=== PATIENT | female | born 1950 | race Two or more races ===

== ENCOUNTER 2025-08-21 08:58 | Inpatient (IN) | payer OTHER ==
[~2025-08-21] VITALS: Ht 162.6 cm; Wt 117.5 kg
[~2025-08-21 08:58] MED LIST: CELE1CAP29 PO; FURO20TA4 PO; GLIP5TAB21 PO; METF-372 PO; METO2.5T PO; POTA-228 PO
--- NOTE | 2025-08-21 09:30 | ED.PDOC ---
History of Present Illness HPI Comments 74-year-old female brought in by ambulance with prior medical history of hypertension, diabetes, AFib, bilateral knee arthritis and a chief complaint of a fall. EMS for on picking the patient up from an independent out post home foremost. Patient reports on ambulating when she felt dizzy and had a near syn copal episode falling on her butt. Patient is currently complaining of right knee pain and lower back pain. The blood pressure on scene was 136/71. Denies any other symptoms at this time. Denies chills, fever, N/V/D, SOB, CP. No other associated symptoms, modifiers, recent injuries or sick contacts present at this time. Chief Complaint: Fall Injury Time Seen by MD: 09:30 Reviewed Notes: Nurses Notes, Medications, Allergies Allergies: Coded Allergies: Sulfa Antibiotics (Verified Allergy, Unknown, 08/21/25) Information Source: Patient, Emergency Med Personnel Mode of Arrival: EMS Severity: Moderate Timing: Minutes Duration: Since onset, Minutes Prehospital treatment: None Past Medical History PAST MEDICAL HISTORY: AFIB, Arthritis (Bilateral knees), DM, HTN, Denies Surgical History: Denies all surgeries MANAGEMENT RECRUITER History: No Pertinent MANAGEMENT RECRUITER History Family History Family History: Reviewed,noncontributory to illness, Unknown Social History Smoker: Non-Smoker Alcohol: Denies ETOH Use Drugs: Denies Drug Use Lives In: Assisted Care Constitutional: denies: chills, diaphoresis, fatigue, fever, malaise, sweats, weakness, others EENTM: denies: blurred vision, double vision, ear bleeding, ear discharge, ear drainage, ear pain, ear ringing, eye pain, eye redness, hearing loss, mouth pain, mouth swelling, nasal discharge, nose bleeding, nose congestion, nose pain, photophobia, tearing, throat pain, throat swelling, voice changes, others Respiratory: denies: cough, hemoptysis, orthopnea, SOB at rest, shortness of breath, SOB with excertion, stridor, wheezing, others Cardiovascular: denies: chest pain, dizzy spells, diaphoresis, Dyspnea on exertion, edema, irregular heart beat, left arm pain, lightheadedness, palpitations, PND, syncope, others Gastrointestinal: denies: abdomen distended, abdominal pain, blood streaked bowels, constipated, diarrhea, dysphagia, difficulty swallowing, hematemesis, melena, nausea, poor appetite, poor fluid intake, rectal bleeding, rectal pain, vomiting, others Genitourinary: denies: abnormal vagina bleeding, burning, dyspareunia, dysuria, flank pain, frequency, hematuria, incontinence, pain, , vagina discharge, urgency, others Neurological: reports: dizziness; denies: fainting, headache, left sided numbness, left sided weakness, numbness, paresthesia, pre-existing deficit, right sided numbness, right sided weakness, seizure, speech problems, tingling, tremors, weakness, others Musculoskeletal: reports: back pain; denies: gout, joint pain, joint swelling, muscle pain, muscle stiffness, neck pain, others Integumetry: denies: bruises, change in color, change in hair/nails, dryness, laceration, lesions, lumps, rash, wounds, others Allergic/Immunocompromised: denies: Difficulty Healing, Frequent Infections, Hives, Itching, others Hematologic/Lymphatic: denies: anemia, blood clots, easy bleeding, easy bruising, swollen glands, others Endocrine: denies: excessive hunger, excessive sweating, excessive thirst, excessive urination, flushing, intolerance to cold, intolerance to heat, unexplained weight gain, unexplained weight loss, others Psychiatric: denies: anxiety, bipolar disorder, depression, hopeless, panic disorder, schizophrenia, sleepless, suicidal, others All Other Systems: Reviewed and Negative Physical Exam General Appearance: Moderate Distress, Obese HEENT: Normal ENT Inspection, Pharynx Normal, TMs Normal Neck: Full Range of Motion, Non-Tender, Normal, Normal Inspection Respiratory: Chest Non-Tender, Lungs Clear, No Accessory Muscle Use, No Respiratory Distress, Normal Breath Sounds Cardiovascular: Irregular, No Edema, No JVD, No Murmur, No Gallop, Normal Peripheral Pulses Breast Exam: Deferred Gastrointestinal: No Organomegaly, Non Tender, No Pulsatile Mass, Normal Bowel Sounds, Soft Genitalia: Deferred Pelvic: Deferred Rectal: Deferred Extremities: No calf tenderness, Normal capillary refill, No pedal edema Musculoskeletal : Apperance: Normal Neurologic: Alert, manager traffic II-XII nml as Tested, No Motor Deficits, Normal Affect, Normal Mood, No Sensory Deficits Cerebellar Function: NOT DONE Reflexes: NOT DONE Skin: Dry, Normal Color, Warm Peripheral Pulses: 3+ Radial (R), 3+ Radial (L) Lymphatic: No Adenopathy Was a procedure done? Was a procedure done?: No Differential Dx Considerations may include: Atrial fibrillation Electrolyte imbalance X-Ray, Labs, Meds, VS Vital Signs Date Time Temp Pulse Resp B/P (MAP) Pulse Ox O2 Delivery O2 Flow Rate FiO2 08/21/25 09:22 97.5 118 20 138/62 95 97.5 08/21/25 09:07 118 Lab Test 08/21/25 10:40 08/21/25 09:39 Range/Units Troponin I High Sensitivity 4 3 L </=34 ng/L White Blood Count 10.9 H 4.4-10.8 10^3/uL Red Blood Count 4.06 4.0-5.20 10^6/uL Hemoglobin 12.3 12.2-16.2 g/dL Hematocrit 36.7 36.0-46.0 % Mean Corpuscular Volume 90.5 80.0-100.0 fL Mean Corpuscular Hemoglobin 30.4 28.0-32.0 pg Mean Corpuscular Hemoglobin Concent 33.6 32.0-36.0 g/dL Red Cell Distribution Width 13.9 11.8-14.3 % Platelet Count 307 140-450 10^3/uL Mean Platelet Volume 7.0 6.9-10.8 fL Neutrophils (%) (Auto) 83.4 H 37.0-80.0 % Lymphocytes (%) (Auto) 9.9 L 10.0-50.0 % Monocytes (%) (Auto) 6.1 0.0-12.0 % Eosinophils (%) (Auto) 0.3 0.0-7.0 % Basophils (%) (Auto) 0.3 0.0-2.0 % Neutrophils # (Auto) 9.1 H 1.6-8.6 10 ^3/uL Lymphocytes # (Auto) 1.1 0.4-5.4 10 ^3/uL Monocytes # (Auto) 0.7 0-1.3 10 ^3/uL Eosinophils # (Auto) 0 0-0.8 10 ^3/uL Basophils # (Auto) 0 0-0.2 10 ^3/uL Nucleated Red Blood Cells 0.0 % Sodium Level 138 136-145 mmol/L Potassium Level 4.0 3.5-5.1 mmol/L Chloride Level 100 98-107 mmol/L Carbon Dioxide Level 28 20-31 mmol/L Anion Gap 10 5-15 Blood Urea Nitrogen 14 9-23 mg/dL Creatinine 1.14 H 0.550-1.02 mg/dL Glomerular Filtration Rate Calc 50 >90 mL/min BUN/Creatinine Ratio 12.3 10.0-20.0 Serum Glucose 155 H 74-106 mg/dL Calcium Level 9.0 8.7-10.4 mg/dL Current Medications Medications (Trade) Dose Ordered Sig/Elinor Route Start Time Stop Time Status Last Admin Amiodarone HCl 100 ml @ 600 mls/hr ONCE ONCE IV 08/21/25 09:30 08/21/25 09:39 DC 08/21/25 10:00 Amiodarone HCl 250 ml @ 33.33 mls/ hr Q7H31M ONCE IV 08/21/25 09:45 08/21/25 17:15 08/21/25 10:20 Piperacillin Sod/ Tazobactam Sod 100 ml @ 100 mls/hr ONCE ONCE IV 08/21/25 11:30 08/21/25 12:29 08/21/25 11:56 Patient alert. Complaining of generalized weakness. She did slip and fall from sitting position. Vitals stable. Blood sugar elevated. EKG does show atrial fibrillation. Establish intravenous access. Was given amiodarone. Explained to the patient. Continue monitoring. Time of 1ST Reevaluation: 10:00 Reevaluation 1ST: Unchanged Patient Education/Counseling: Diagnosis, Treatment, Prognosis Family Education/Counseling: No Family Present SEPSIS Sepsis Screen Date sepsis recognized/suspect: Aug 21, 2025 Time Sepsis recognized/suspect: 08 Recent Procedure: No On Antibiotic Therapy: No Respiratory Rate >20: No Heart Rate >90: Yes Temp<36 C (96.8 F) or >38.3 C: No SBP <90 or MAP <65 mmHG: No New Acute Mental Status Change: No Is the patient on CPAP, BIPAP,: No Physician Orders Pelvis Ap (08/21/25 09:21) Chest Portable (08/21/25 09:21) Urinalysis (08/21/25 09:21) Troponin-I Hs (08/21/25 12:21) Amiodarone 450mg/250ml Ae (Cordarone) (08/21/25 09:45) Piperacillin-Tazob 3.375gm (Zosyn 3.375g (08/21/25 11:30) Azithromycin 500mg/ 250ml (Zithromax 50 (08/21/25 11:30) Vital Signs Date Time Temp Pulse Resp B/P (MAP) Pulse Ox O2 Delivery O2 Flow Rate FiO2 08/21/25 09:22 97.5 118 20 138/62 95 97.5 08/21/25 09:07 118 Laboratory Tests Test 08/21/25 09:39 White Blood Count 10.9 10^3/uL (4.4-10.8) H Medications Medications Dose Ordered Sig/Elinor Route Start Time Stop Time Status Last Admin Dose Admin Amiodarone HCl 100 ml @ 600 mls/hr ONCE ONCE IV 08/21/25 09:30 08/21/25 09:39 DC 08/21/25 10:00 Amiodarone HCl 250 ml @ 33.33 mls/ hr Q7H31M ONCE IV 08/21/25 09:45 08/21/25 17:15 08/21/25 10:20 Piperacillin Sod/ Tazobactam Sod 100 ml @ 100 mls/hr ONCE ONCE IV 08/21/25 11:30 08/21/25 12:29 08/21/25 11:56 Departure 1 Departure Time of Disposition: 11:18 Impression: Primary Impression: Atrial fibrillation Qualified Codes: I48.0 - Paroxysmal atrial fibrillation Additional Impressions: Hyperglycemia Leukocytosis Qualified Codes: D72.829 - Elevated white blood cell count, unspecified Disposition: ADMITTED INPATIENT Admit to: Med Surg Condition: Guarded Critical Care Note Critical Care Time?: Yes (90 min-critical care time only) Stability Stability form required: No Heart Score Heart Score: Heart Score Response (Comments) Value History Slightly Suspicious 0 EKG Normal 0 Age >65 2 Risk Factors >3 or Hx ASHD 2 Troponin Normal limit 0 Total 4 I personally scribed for ALENA CHUNG MD ([email or web address]) on 08/21/25 at 09:30. Electronically submitted by Desmond Mars ([email or web address]). ALENA CHUNG MD Aug 21, 2025 09:30
--- NOTE | 2025-08-21 09:49 | ECG ---
[facility] Test Date: 2025-08-21 Test Time: 09:07:38 Pat Name: JUMANA RICHMOND Department: [facility] ED Room: 0204T Gender: F Computer Customer Support Specialist: ELIZA : 1950 Requested By: ALENA CHUNG Order Number: [id number] Reading MD: Dawson Sellers Measurements Intervals [place] Rate: 118 P: 0 IA: 0 QRS: 121 QRSD: 93 T: 5 QT: 305 QTc: 428 Interpretive Statements Sinus tachycardia Anterior infarct, old Electronically Signed On 08-27-2025 13:21:10 PST by Dawson Sellers Please click the below link to view image of tracing.
[2025-08-21 09:58] LABS: Hematocrit 36.7 % (36.0-46.0); Hemoglobin 12.3 g/dL (12.2-16.2); Mean Corpuscular Hemoglobin 30.4 pg (28.0-32.0); Mean Corpuscular Volume 90.5 fL (80.0-100.0); Nucleated Red Blood Cells % 0.0 %
[2025-08-21] MEDS: AMIODARONE BOLUS KIT 100 ML IV ONE (10:00)
--- NOTE | 2025-08-21 10:01 | DVH ---
CLINICAL INDICATION: fall TECHNIQUE: XY PELVIS AP Comparison: None FINDINGS/IMPRESSION: : There is no evidence of acute fracture or dislocation. Soft tissues are unremarkable. 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
--- NOTE | 2025-08-21 10:03 | DVH ---
CHEST RADIOGRAPH Indication: sob Technique: Single frontal view of the chest was obtained COMPARISON: None FINDINGS: Lines and Tubes: None Lungs: Congestion Pleura: No effusion. No pneumothorax. Cardiomediastinal contours: Unremarkable Bones: Chronic appearing displaced fracture of the left proximal humerus. IMPRESSION: Increased interstital prominence. This may represent pulmonary vascular congestion and/or viral pneum onia. Clinical correlation advised.
[2025-08-21 10:10] LABS: Chloride 100 mmol/L (98-107); Potassium 4.0 mmol/L (3.5-5.1); Sodium 138 mmol/L (136-145)
[2025-08-21 10:11] LABS: Anion Gap 10 (5-15); Calcium 9.0 mg/dL (8.7-10.4); Carbon Dioxide 28 mmol/L (20-31)
[2025-08-21 10:16] LABS: BUN/Creatinine Ratio 12.3 (10.0-20.0); Blood Urea Nitrogen 14 mg/dL (9-23)
[2025-08-21 10:17] LABS: Glucose 155 mg/dL (74-106)
[2025-08-21] MEDS: SODIUM CHLORIDE 0.9% 1,000 ML IV ONE (11:17)
--- NOTE | 2025-08-21 11:17 | ECG ---
[facility] Test Date: 2025-08-21 Test Time: 11:16:05 Pat Name: JUMANA RICHMOND Department: [facility] ED Patient ID: [id number] Room: 0204T Gender: F Material Analyst: baltazar : 1950 Requested By: ALENA CHUNG Order Number: [id number] Reading MD: Dawson Sellers Measurements Intervals [place] Rate: 117 P: 48 NE: 197 QRS: 107 QRSD: 81 T: 33 QT: 299 QTc: 417 Interpretive Statements Sinus tachycardia Multiform ventricular premature complexes Anterior infarct, old Electronically Signed On 08-27-2025 13:23:44 PST by Dawson Sellers Please click the below link to view image of tracing.
[2025-08-21 11:30] VITALS: PULSE 120; RESP 14; O2SAT 94
[2025-08-21] MEDS: PIPERACILLIN-TAZOB 3.375GM 100 ML IV ONE (11:56)
[2025-08-21] MEDS: FUROSEMIDE 40 MG/4 ML VIAL IV ONE (12:20)
[2025-08-21] MEDS: AZITHROMYCIN 500MG/ 250ML 250 ML IV ONE (14:20)
[2025-08-21] MEDS ORDERED: ATOR40TA52 PO (14:52)
[2025-08-21] MEDS ORDERED: IRBE150T49 PO (14:52)
[2025-08-21] MEDS ORDERED: APIX5TAB PO (14:52)
[2025-08-21] MEDS ORDERED: NIFE1TAB30 PO (14:52)
[2025-08-21] MEDS ORDERED: DEXTROSE (50%) 50ML SYRG IV PRN (15:00)
[2025-08-21] MEDS ORDERED: ONDANSETRON HCL 4 MG/2 ML VIAL IV PRN (15:00)
[2025-08-21] MEDS ORDERED: NITROGLYCERIN 0.4 MG SL TAB SL PRN ×2 (15:00→15:15)
[2025-08-21] MEDS ORDERED: MORPHINE SULFATE INJ 2 MG/ml SYRG IV PRN ×2 (15:00→15:15)
--- NOTE | 2025-08-21 15:04 | DVHHP2 ---
History of Present Illness Reason for Visit: Status post fall History of Present Illness Dilcia Aceves is a 74 year old female with past medical history of AFib, arthritis bilateral knees, DVT, diabetes, hypertension, CHF, and hyperlipidemia who presents to the ED with a status post fall after ambulating, reports that she was dizzy and had a near syncopal episode. Review of Systems Other Status post fall Allergies: Coded Allergies: Sulfa Antibiotics (Verified Allergy, Unknown, 08/21/25) Exam Vital Signs Vital Signs Date Time Temp Pulse Resp B/P (MAP) Pulse Ox O2 Delivery O2 Flow Rate FiO2 08/21/25 14:00 110 12 158/85 (109) 96 08/21/25 11:30 Room Air* 0 21 08/21/25 09:22 97.5 97.5 Labs/Xrays Labs Test 08/21/25 10:40 08/21/25 09:39 Range/Units Troponin I High Sensitivity 4 </=34 ng/L White Blood Count 10.9 H 4.4-10.8 10^3/uL Red Blood Count 4.06 4.0-5.20 10^6/uL Hemoglobin 12.3 12.2-16.2 g/dL Hematocrit 36.7 36.0-46.0 % Mean Corpuscular Volume 90.5 80.0-100.0 fL Mean Corpuscular Hemoglobin 30.4 28.0-32.0 pg Mean Corpuscular Hemoglobin Concent 33.6 32.0-36.0 g/dL Red Cell Distribution Width 13.9 11.8-14.3 % Platelet Count 307 140-450 10^3/uL Mean Platelet Volume 7.0 6.9-10.8 fL Neutrophils (%) (Auto) 83.4 H 37.0-80.0 % Lymphocytes (%) (Auto) 9.9 L 10.0-50.0 % Monocytes (%) (Auto) 6.1 0.0-12.0 % Eosinophils (%) (Auto) 0.3 0.0-7.0 % Basophils (%) (Auto) 0.3 0.0-2.0 % Neutrophils # (Auto) 9.1 H 1.6-8.6 10 ^3/uL Lymphocytes # (Auto) 1.1 0.4-5.4 10 ^3/uL Monocytes # (Auto) 0.7 0-1.3 10 ^3/uL Eosinophils # (Auto) 0 0-0.8 10 ^3/uL Basophils # (Auto) 0 0-0.2 10 ^3/uL Nucleated Red Blood Cells 0.0 % Sodium Level 138 136-145 mmol/L Potassium Level 4.0 3.5-5.1 mmol/L Chloride Level 100 98-107 mmol/L Carbon Dioxide Level 28 20-31 mmol/L Anion Gap 10 5-15 Blood Urea Nitrogen 14 9-23 mg/dL Creatinine 1.14 H 0.550-1.02 mg/dL Glomerular Filtration Rate Calc 50 >90 mL/min BUN/Creatinine Ratio 12.3 10.0-20.0 Serum Glucose 155 H 74-106 mg/dL Calcium Level 9.0 8.7-10.4 mg/dL CLINICAL INDICATION: fall TECHNIQUE: XY PELVIS AP Comparison: None FINDINGS/IMPRESSION: : There is no evidence of acute fracture or dislocation. Soft tissues are unremarkable. 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 CHEST RADIOGRAPH Indication: sob Technique: Single frontal view of the chest was obtained COMPARISON: None FINDINGS: Lines and Tubes: None Lungs: Congestion Pleura: No effusion. No pneumothorax. Cardiomediastinal contours: Unremarkable Bones: Chronic appearing displaced fracture of the left proximal humerus. IMPRESSION: Increased interstital prominence. This may represent pulmonary vascular congestion and/or viral pneumonia. Clinical correlation advised. SEPSIS Sepsis Screen Date sepsis recognized/suspect: Aug 21, 2025 Time Sepsis recognized/suspect: 1130 Recent Procedure: No On Antibiotic Therapy: No Respiratory Rate >20: No Heart Rate >90: No Temp<36 C (96.8 F) or >38.3 C: No SBP <90 or MAP <65 mmHG: No New Acute Mental Status Change: No Is the patient on CPAP, BIPAP,: No Physician Orders Pelvis Ap (08/21/25 09:21) Chest Portable (08/21/25 09:21) Urinalysis (08/21/25 09:21) Amiodarone 450mg/250ml Ae (Cordarone) (08/21/25 09:45) Insert Loaiza Catheter QSHIFT (08/21/25 12:23) Vital Signs Date Time Temp Pulse Resp B/P (MAP) Pulse Ox O2 Delivery O2 Flow Rate FiO2 08/21/25 14:00 110 12 158/85 (109) 96 08/21/25 12:20 144/90 08/21/25 11:30 120 14 152/83 (106) 94 08/21/25 11:30 120 14 94 Room Air* 0 21 08/21/25 09:22 97.5 118 20 138/62 95 97.5 08/21/25 09:07 118 Laboratory Tests Test 08/21/25 09:39 White Blood Count 10.9 10^3/uL (4.4-10.8) H Medications Medications Dose Ordered Sig/Elinor Route Start Time Stop Time Status Last Admin Dose Admin Amiodarone HCl 100 ml @ 600 mls/hr ONCE ONCE IV 08/21/25 09:30 08/21/25 09:39 DC 08/21/25 10:00 600 MLS/HR Amiodarone HCl 250 ml @ 33.33 mls/ hr Q7H31M ONCE IV 08/21/25 09:45 08/21/25 17:15 08/21/25 10:20 33.33 MLS/HR Azithromycin 250 ml @ 125 mls/hr ONCE ONCE IV 08/21/25 11:30 08/21/25 13:29 DC 08/21/25 14:20 125 MLS/HR Furosemide 40 mg ONCE ONCE IV 08/21/25 11:30 08/21/25 11:31 DC 08/21/25 12:20 40 MG Piperacillin Sod/ Tazobactam Sod 100 ml @ 100 mls/hr ONCE ONCE IV 08/21/25 11:30 08/21/25 12:29 DC 08/21/25 11:56 100 MLS/HR Assessment/Plan Assessment/Plan Assessment/plan Admit to [facility] AFib RVR -amiodarone drip -cardiology consult Autonomic imbalance Status post fall 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 History of arthritis bilateral knees -CT head -carotid ultrasound -orthostatics -echo -pelvic x-ray -chest x-ray History of DVT -patient on Eliquis, resumed History of diabetes -hemoglobin A1c -ISS and Accu-Cheks History of hypertension History of CHF History of hyperlipidemia -strict I&Os -daily weight -diurese -antihypertensives -resume home medications Diet DVT and PUD prophylaxis Home medications reconciled Discussed plan of care with patient and nurse [id number] Preventive counseling healthy eating habits, physical activity, and regular checkups Plan discussed with: Patient Date of Service: Aug 21, 2025 Billing Provider: TEJ COFFEY Common Visit Codes: [id number] INP/OBS CARE (HIGH) Secondary Visit Codes: [id number] COUNSELING IND TEJ COFFEY Aug 21, 2025 15:04
--- NOTE | 2025-08-21 15:07 | DVHHP2 ---
History of Present Illness Home Meds Reported Medications Celecoxib (Celecoxib) 200 Mg Cap, 1 CAP PO BID for 90 Days, #180 08/22/25 Metolazone (Metolazone) 2.5 Mg Tab, 1 TAB PO DAILY for 90 Days, #90 08/22/25 Furosemide (Furosemide) 20 Mg Tab, 1 TAB PO DAILY for 90 Days, #90 08/22/25 Glipizide (Glipizide) 5 Mg Tab, 1 TAB PO DAILY for 100 Days, #100 08/22/25 Potassium Chloride (Potassium Chloride ER) 10 Meq Tab, 1 TAB PO BID for 90 Days, #180 08/22/25 Metformin Hydrochloride (Metformin Hcl) 1,000 Mg Tab, 1 TAB PO BID for 90 Days, #180 08/22/25 Nifedipine (Nifedipine Er) 60 Mg Tab, 1 TAB PO BID 08/21/25 Atorvastatin Calcium (ATORVASTATIN CALCIUM) 40 Mg Tab, 1 TAB PO DAILY 08/21/25 Apixaban Base (ELIQUIS) 5 Mg Tab, 1 TAB PO BID 08/21/25 Irbesartan (IRBESARTAN) 150 Mg Tab, 1 TAB PO DAILY 08/21/25 H&P Exam Vital Signs Vital Signs Date Time Temp Pulse Resp B/P (MAP) Pulse Ox O2 Delivery O2 Flow Rate FiO2 08/21/25 14:00 110 12 158/85 (109) 96 08/21/25 11:30 Room Air* 0 21 08/21/25 09:22 97.5 97.5 SEPSIS Sepsis Screen Date sepsis recognized/suspect: Aug 21, 2025 Time Sepsis recognized/suspect: 1130 Recent Procedure: No On Antibiotic Therapy: No Respiratory Rate >20: No Heart Rate >90: No Temp<36 C (96.8 F) or >38.3 C: No SBP <90 or MAP <65 mmHG: No New Acute Mental Status Change: No Is the patient on CPAP, BIPAP,: No Physician Orders Pelvis Ap (08/21/25 09:21) Chest Portable (08/21/25 09:21) Urinalysis (08/21/25 09:21) Amiodarone 450mg/250ml Ae (Cordarone) (08/21/25 09:45) Insert Loaiza Catheter QSHIFT (08/21/25 12:23) Apixaban (Eliquis) (08/21/25 22:00) (Nf) Atorvastatin Calcium (08/22/25 10:00) (Nf) Irbesartan (08/22/25 10:00) (Nf) Nifedipine (Nifedipine Er) (08/21/25 22:00) Head Without Contrast (08/21/25 14:55) Carotid Duplx W Color Dop (08/21/25 14:55) Orthostatic Vital Signs (08/21/25 14:55) Allergies (08/21/25 14:55) Code Status (08/21/25 14:55) Ondansetron Hcl (Zofran) (08/21/25 15:00) Complete Blood Count (08/22/25 04:00) Comprehensive Metabolic Panel (08/22/25 04:00) Echo 2d Mode Cardiac Dop (08/21/25 14:55) Acetaminophen Tablet (Tylenol Tablet) (08/21/25 15:00) Sequential Compression Device (08/21/25 ) Nitroglycerin Sublingual (Ntrostat Subli (08/21/25 15:00) Morphine Sulfate Injection (08/21/25 15:00) Stat Ekg For Chest Pain (08/21/25 14:55) Notify Md Of Changes From Base (08/21/25 14:55) Fuel Attendant For 24 Hours (08/21/25 14:55) Emergency Dysrhythmia Protocol (08/21/25 14:55) Rhythm Strips Once Every Shift (08/21/25 14:55) Oxygen By Nasal Cannula (08/21/25 14:55) Urinalysis (08/21/25 14:58) Ceftriaxone 1gm/50ml (Rocephin) (08/22/25 09:00) Hemoglobin A1c (08/21/25 14:58) Glucose Blood (Accu-Chek Comfort Curve T (08/21/25 17:00) Insulin R (Human) (Insulin R) (08/21/25 17:00) Dextrose 50% Syringe (08/21/25 15:00) Cardiac Diet-2gna,Lofat,Lochol (08/21/25 Dinner) Furosemide Injection (Lasix Injection) (08/21/25 15:15) Strict I & O QSHIFT (08/21/25 15:04) Daily Weight (08/21/25 15:04) Vital Signs Date Time Temp Pulse Resp B/P (MAP) Pulse Ox O2 Delivery O2 Flow Rate FiO2 08/21/25 14:00 110 12 158/85 (109) 96 08/21/25 12:20 144/90 08/21/25 11:30 120 14 152/83 (106) 94 08/21/25 11:30 120 14 94 Room Air* 0 21 08/21/25 09:22 97.5 118 20 138/62 95 97.5 08/21/25 09:07 118 Laboratory Tests Test 08/21/25 09:39 White Blood Count 10.9 10^3/uL (4.4-10.8) H Medications Medications Dose Ordered Sig/Elinor Route Start Time Stop Time Status Last Admin Dose Admin Amiodarone HCl 100 ml @ 600 mls/hr ONCE ONCE IV 08/21/25 09:30 08/21/25 09:39 DC 08/21/25 10:00 600 MLS/HR Amiodarone HCl 250 ml @ 33.33 mls/ hr Q7H31M ONCE IV 08/21/25 09:45 08/21/25 17:15 08/21/25 10:20 33.33 MLS/HR Azithromycin 250 ml @ 125 mls/hr ONCE ONCE IV 08/21/25 11:30 08/21/25 13:29 DC 08/21/25 14:20 125 MLS/HR Furosemide 40 mg ONCE ONCE IV 08/21/25 11:30 08/21/25 11:31 DC 08/21/25 12:20 40 MG Piperacillin Sod/ Tazobactam Sod 100 ml @ 100 mls/hr ONCE ONCE IV 08/21/25 11:30 08/21/25 12:29 DC 08/21/25 11:56 100 MLS/HR Labs/Xrays Labs Test 08/21/25 10:40 08/21/25 09:39 Range/Units Troponin I High Sensitivity 4 </=34 ng/L White Blood Count 10.9 H 4.4-10.8 10^3/uL Red Blood Count 4.06 4.0-5.20 10^6/uL Hemoglobin 12.3 12.2-16.2 g/dL Hematocrit 36.7 36.0-46.0 % Mean Corpuscular Volume 90.5 80.0-100.0 fL Mean Corpuscular Hemoglobin 30.4 28.0-32.0 pg Mean Corpuscular Hemoglobin Concent 33.6 32.0-36.0 g/dL Red Cell Distribution Width 13.9 11.8-14.3 % Platelet Count 307 140-450 10^3/uL Mean Platelet Volume 7.0 6.9-10.8 fL Neutrophils (%) (Auto) 83.4 H 37.0-80.0 % Lymphocytes (%) (Auto) 9.9 L 10.0-50.0 % Monocytes (%) (Auto) 6.1 0.0-12.0 % Eosinophils (%) (Auto) 0.3 0.0-7.0 % Basophils (%) (Auto) 0.3 0.0-2.0 % Neutrophils # (Auto) 9.1 H 1.6-8.6 10 ^3/uL Lymphocytes # (Auto) 1.1 0.4-5.4 10 ^3/uL Monocytes # (Auto) 0.7 0-1.3 10 ^3/uL Eosinophils # (Auto) 0 0-0.8 10 ^3/uL Basophils # (Auto) 0 0-0.2 10 ^3/uL Nucleated Red Blood Cells 0.0 % Sodium Level 138 136-145 mmol/L Potassium Level 4.0 3.5-5.1 mmol/L Chloride Level 100 98-107 mmol/L Carbon Dioxide Level 28 20-31 mmol/L Anion Gap 10 5-15 Blood Urea Nitrogen 14 9-23 mg/dL Creatinine 1.14 H 0.550-1.02 mg/dL Glomerular Filtration Rate Calc 50 >90 mL/min BUN/Creatinine Ratio 12.3 10.0-20.0 Serum Glucose 155 H 74-106 mg/dL Calcium Level 9.0 8.7-10.4 mg/dL Assessment/Plan Primary Diagnosis Date of service: 74-year-old female brought in by ambulance with prior medical history of hypertension, diabetes, AFib, bilateral knee arthritis and a chief complaint of a fall. EMS for on picking the patient up from an independent out post home foremost. Patient reports on ambulating when she felt dizzy and had a near syncopal episode falling on her butt. Patient is currently complaining of right knee pain and lower back pain. The blood pressure on scene was 136/71. Denies any other symptoms at this time. Denies chills, fever, N/V/D, SOB, CP. No other associated symptoms, modifiers, recent injuries or sick contacts present at this time. AFib with RVR Autonomic imbalance vs CVA History of DVT DM type II CHF chronic CHF History of hyperlipidemia edema b/l in lower extremities leg swelling, ruling out DVT edema b/l syncope, ruling out CVA Plan discussed with: Patient, Daughter RABIA DENIS Aug 21, 2025 15:07
--- NOTE | 2025-08-21 15:41 | DVH ---
Procedure: CT HEAD WITHOUT CONTRAST Study Date and Requested Time: 08/21/2025 03:02 PM History: s/p fall Comparison: None Dose: CTDI: 65.65 mGy DLP: 1293.57 mGycm Technique: Multiplanar images obtained through the brain without intravenous contrast. Findings: Study is limited By Motion artifact in streak artifact by external ear hardware. Moderate Diffuse br ain atrophy. Mild chronic small-vessel ischemic changes. No hemorrhages, masses, mass effect, midline shift, herniation or cytotoxic edema following a large v ascular territory. No intra-axial or extra-axial fluid collections. No evidence of hydrocephalus. The basal cisterns are patent. The pituitary gland, sella and parasellar regions are unremarkable. The cerebellar tonsils are in nor mal position. The cerebellum is unremarkable. The orbits and globes are unremarkable. Polypoid mucoperiosteal thickening of the maxillary sinuses w ith polypoid mucoperiosteal thickening of the left inferior frontal sinus and minimal mucoperiosteal thickening of the ethmoid air cells. The remainder of the paranasal sinuses and mastoids are clear. T here are no worrisome calvarial lesions. Impression: Study is limited by motion and streak artifact with no obvious intracranial hemorrhage.
[2025-08-21 15:42] LABS: Urine Protein, UAD Negative (Negative)
--- NOTE | 2025-08-21 16:01 | DVH ---
Carotid Duplex Date: 08/21/2025 03:21 PM Clinical History: s/p fall Comparison: None Technique: Duplex Doppler evaluation of the extracranial carotid and vertebral arteries including col or Doppler and spectral/pulsed waveform analysis was performed. Findings: RIGHT SIDE: The peak systolic velocities are 71 cm/s in the distal CCA and 148 cm/s in the distal ICA.The ICA/CCA ratio is 2.3 The external carotid artery is patent with peak systolic velocity of 92 cm/s proximally. There is appropriate antegrade flow in the right vertebral artery. LEFT SIDE: The peak systolic velocities are 80 cm/s in the distal CCA and 112 cm/s in the proximal ICA.. The ICA /CCA ratio is less than 2. The external carotid artery is patent with peak systolic velocity of 60 cm/s proximally. There is appropriate antegrade flow in the left vertebral artery. IMPRESSION: There is about 50-69% stenosis of the right carotid arterial system. No hemodynamically significant stenosis noted in the left carotid arterial system. Reference: Radiology 2003; [id number]
[2025-08-21] MEDS: FUROSEMIDE 40 MG/4 ML VIAL IV SCH (16:04)
--- NOTE | 2025-08-21 16:45 | DVH ---
BILATERAL LOWER EXTREMITY VENOUS DUPLEX REASON FOR EXAMINATION: Bilateral lower extremity pain and edema. COMPARISON: US CAROTID DUPLX W COLOR DOP on DOS: 08/21/25 TECHNIQUE: Using real-time freeze-frame technique with a high-frequency transducer, multiple longitu dinal and transverse sections were obtained. Simultaneous color flow and spectral Doppler imaging wa s performed. The veins from the popliteal fossa to the groin or evaluated. FINDINGS: There is good visualization of the deep venous system with no intraluminal filling defects identified. Normal venous compressibility is seen and there is flow augmentation. Color flow Doppler imaging is unremarkable. There is an approximately 3.3 x 1.6 x 1.9 cm Siddiqui's cyst in the right popliteal fossa. There is an a pproximately 4.7 x 1.3 x 3.1 cm Siddiqui's cyst in the left popliteal fossa. There is edema of the subcutaneous soft tissues in both lower legs. IMPRESSION: No evidence of femoropopliteal deep venous thrombosis.
[2025-08-21] MEDS: ACCU-CHEK COMFORT CURVE STRIP VI SCH (17:23)
[2025-08-21] MEDS: InsuLIN REG 1unit/0.01ml Soln (100units/ml) SC SCH (17:36)
[2025-08-21 19:00] VITALS: RESP 16; O2SAT 94
[2025-08-21] MEDS: APIXABAN 5 MG TAB PO SCH (22:57)
[2025-08-21] MEDS: ATORVASTATIN 20 MG TAB PO SCH (22:57)
[2025-08-22] VITALS (7 sets, daily range): BP systolic 135–143; BP diastolic 78–83; PULSE 100–114; RESP 17–19; TEMP 98–98.7; O2SAT 91–95
[2025-08-22 04:06] LABS: Hematocrit 34.3 % (36.0-46.0); Hemoglobin 11.5 g/dL (12.2-16.2); Mean Corpuscular Hemoglobin 30.0 pg (28.0-32.0); Mean Corpuscular Volume 89.5 fL (80.0-100.0); Nucleated Red Blood Cells % 0.1 %
[2025-08-22 04:28] LABS: Alanine Aminotransferase 12 U/L (7-40); Albumin 4.1 g/dL (3.2-4.8); Alkaline Phosphatase 78 U/L (46-116); Anion Gap 9 (5-15); BUN/Creatinine Ratio 11.5 (10.0-20.0); Bilirubin, Total 0.6 mg/dL (0.2-1.0); Blood Urea Nitrogen 12 mg/dL (9-23); Calcium 9.1 mg/dL (8.7-10.4); Carbon Dioxide 29 mmol/L (20-31); Chloride 99 mmol/L (98-107); Sodium 137 mmol/L (136-145); Total Protein 6.7 g/dL (5.7-8.2)
[2025-08-22 04:29] LABS: Glucose 119 mg/dL (74-106); Potassium 3.4 mmol/L (3.5-5.1)
[2025-08-22] MEDS: LOSARTAN POTASSIUM 50 MG TAB PO SCH (09:55)
[2025-08-22] MEDS: FUROSEMIDE 100 MG/10ML VIAL IV SCH (17:35)
[2025-08-22 21:00] LABS: COVID19 ANTIGEN SOFIA FIA NEGATIVE (NEGATIVE)
[2025-08-22] MEDS: AMIODARONE HCL 200 MG TAB PO SCH (21:28)
[2025-08-22] MEDS: ACETAMINOPHEN 325 MG TAB PO PRN (21:38)
[2025-08-23] VITALS (8 sets, daily range): BP systolic 102–144; BP diastolic 57–81; PULSE 99–118; RESP 18–20; TEMP 98.1–98.9; O2SAT 90–100
--- NOTE | 2025-08-23 11:17 | DVHPN2 ---
Progress Note Date Seen: Aug 22, 2025 Medical Necessity Reason Pt with a Central, PICC or Fol: No Subjective Patient reports: No new complaints Review of Systems: HEENT:Normal, CVS:Normal, RESPIRATORY:Normal Objective vital signs Vital Sign Date Time Temp Pulse Resp B/P (MAP) Pulse Ox O2 Delivery O2 Flow Rate FiO2 08/22/25 14:05 98.5 107 140/83 (102) 91 98.5 08/22/25 14:05 Room Air* 0 21 08/22/25 13:00 18 Total Intake and Output 08/21/25 08/21/25 08/22/25 15:00 23:00 07:00 Intake Total 233.32 ml 303.29 ml 49.98 ml Output Total 1100 ml Balance 233.32 ml -796.71 ml 49.98 ml medications Current Medications Medications Dose Ordered Sig/Elinor Route Start Time Stop Time Status Last Admin Dose Admin Apixaban 5 mg BID PO 08/21/25 22:00 08/22/25 09:54 5 MG Atorvastatin Calcium 40 mg HS PO 08/21/25 22:00 08/21/25 22:57 40 MG Losartan Potassium 50 mg DAILY PO 08/22/25 10:00 08/22/25 09:55 50 MG Nifedipine 60 mg BID PO 08/21/25 22:00 08/22/25 09:55 60 MG Ondansetron HCl 4 mg Q4HP PRN IV 08/21/25 15:00 Acetaminophen 650 mg Q6HP PRN PO 08/21/25 15:00 Nitroglycerin 0.4 mg Q5MINP PRN SL 08/21/25 15:00 UNV Morphine Sulfate 2 mg Q30M PRN IV 08/21/25 15:00 UNV Ceftriaxone Sodium 50 ml @ 100 mls/hr DAILY@09 IV 08/22/25 09:00 08/22/25 09:54 100 MLS/HR Diagnostic Test (Pha) 1 strip ACHS 08/21/25 17:00 08/22/25 11:30 1 STRIP Insulin Human Regular ACHS SC 08/21/25 17:00 08/22/25 12:02 4 UNITS Dextrose 50 ml UD PRN IV 08/21/25 15:00 Furosemide 40 mg DAILY IV 08/21/25 15:15 08/22/25 09:54 40 MG Nitroglycerin 0.4 mg Q5MINP PRN SL 08/21/25 15:15 Morphine Sulfate 2 mg Q30M PRN IV 08/21/25 15:15 Amiodarone HCl 250 ml @ 16.66 mls/ hr Q15H1M IV 08/21/25 19:00 08/22/25 09:56 16.66 MLS/HR laboratory and microbiology Laboratory Tests 08/22/25 03:45 Test 08/22/25 03:45 Range/Units Serum Glucose 119 H 74-106 mg/dL Labs and/or images reviewed: Labs reviewed by me, Image(s) reviewed by me Problem List/Assessment/Plan Problem List/Assessment/Plan 74-year-old female brought in by ambulance with prior medical history of hypertension, diabetes, AFib, bilateral knee arthritis and a chief complaint of a fall. EMS for on picking the patient up from an independent out post home foremost. Patient reports on ambulating when she felt dizzy and had a near syncopal episode falling on her butt. Patient is currently complaining of right knee pain and lower back pain. The blood pressure on scene was 136/71. Denies any other symptoms at this time. Denies chills, fever, N/V/D, SOB, CP. No other associated symptoms, modifiers, recent injuries or sick contacts present at this time. AFib with RVR Autonomic imbalance vs CVA History of DVT DM type II CHF chronic CHF History of hyperlipidemia edema b/l in lower extremities leg swelling, ruling out DVT edema b/l syncope, ruling out CVA Plan discussed with: Patient My Orders My Orders Orders - RABIA DENIS DO Procedure Category Date Status Time Amiodarone PHA 08/21/25 In Process 450mg/250ml Ae 19:00 RABIA DENIS DO Aug 22, 2025 15:15
[2025-08-23] MEDS: POTASSIUM CHL 20 Meq TABLET PO ONE (15:47)
[2025-08-23 19:08] LABS: Anion Gap 10 (5-15)
[2025-08-23 19:14] LABS: BUN/Creatinine Ratio 13.3 (10.0-20.0); Blood Urea Nitrogen 18 mg/dL (9-23); Calcium 8.5 mg/dL (8.7-10.4); Carbon Dioxide 33 mmol/L (20-31); Chloride 89 mmol/L (98-107); Glucose 185 mg/dL (74-106); Potassium 3.3 mmol/L (3.5-5.1); Sodium 132 mmol/L (136-145)
[2025-08-24] VITALS (8 sets, daily range): BP systolic 109–139; BP diastolic 62–83; PULSE 81–103; RESP 18–20; TEMP 98–99.4; O2SAT 90–100
[2025-08-24] MEDS: POTASSIUM CHL 20 Meq TABLET PO ONE (14:54)
[2025-08-25] VITALS (8 sets, daily range): BP systolic 114–148; BP diastolic 55–71; PULSE 87–104; RESP 18–19; TEMP 97.7–99.1; O2SAT 92–99
--- NOTE | 2025-08-25 13:10 | DVHPN2 ---
Progress Note Date Seen: Aug 24, 2025 Medical Necessity Reason Pt with a Central, PICC or Fol: No Subjective Review of Systems: HEENT:Normal, CVS:Normal, RESPIRATORY:Normal Objective vital signs Vital Sign Date Time Temp Pulse Resp B/P (MAP) Pulse Ox O2 Delivery O2 Flow Rate FiO2 08/25/25 13:00 97.7 95 18 148/71 (96) 99 97.7 08/25/25 08:10 Nasal Cannula* 2 28 Total Intake and Output 08/24/25 08/24/25 08/25/25 15:00 23:00 07:00 Intake Total 520 ml 1180 ml 520 ml Output Total 1300 ml 600 ml Balance 520 ml -120 ml -80 ml medications Current Medications Medications Dose Ordered Sig/Elinor Route Start Time Stop Time Status Last Admin Dose Admin Apixaban 5 mg BID PO 08/21/25 22:00 08/25/25 09:15 5 MG Atorvastatin Calcium 40 mg HS PO 08/21/25 22:00 08/24/25 21:17 40 MG Losartan Potassium 50 mg DAILY PO 08/22/25 10:00 08/24/25 09:30 50 MG Nifedipine 60 mg BID PO 08/21/25 22:00 08/24/25 21:18 60 MG Ondansetron HCl 4 mg Q4HP PRN IV 08/21/25 15:00 Acetaminophen 650 mg Q6HP PRN PO 08/21/25 15:00 08/22/25 21:38 650 MG Nitroglycerin 0.4 mg Q5MINP PRN SL 08/21/25 15:00 UNV Morphine Sulfate 2 mg Q30M PRN IV 08/21/25 15:00 UNV Ceftriaxone Sodium 50 ml @ 100 mls/hr DAILY@09 IV 08/22/25 09:00 08/25/25 09:15 100 MLS/HR Diagnostic Test (Pha) 1 strip ACHS 08/21/25 17:00 08/25/25 11:45 1 STRIP Insulin Human Regular ACHS SC 08/21/25 17:00 08/25/25 11:50 6 UNITS Dextrose 50 ml UD PRN IV 08/21/25 15:00 Furosemide 40 mg DAILY IV 08/21/25 15:15 08/22/25 09:54 40 MG Nitroglycerin 0.4 mg Q5MINP PRN SL 08/21/25 15:15 Morphine Sulfate 2 mg Q30M PRN IV 08/21/25 15:15 Furosemide 80 mg BIDD IV 08/22/25 18:00 08/24/25 05:31 80 MG Amiodarone HCl 200 mg Q12HR PO 08/22/25 22:00 08/25/25 09:15 200 MG Examination: GENERAL:Normal, HEENT:Normal laboratory and microbiology Laboratory Tests 08/23/25 18:16 08/22/25 03:45 Test 08/23/25 18:16 Range/Units Serum Glucose 185 H 74-106 mg/dL Labs and/or images reviewed: Labs reviewed by me, Image(s) reviewed by me Problem List/Assessment/Plan Problem List/Assessment/Plan 74-year-old female brought in by ambulance with prior medical history of hypertension, diabetes, AFib, bilateral knee arthritis and a chief complaint of a fall. EMS for on picking the patient up from an independent out post home foremost. Patient reports on ambulating when she felt dizzy and had a near syncopal episode falling on her butt. Patient is currently complaining of right knee pain and lower back pain. The blood pressure on scene was 136/71. Denies any other symptoms at this time. Denies chills, fever, N/V/D, SOB, CP. No other associated symptoms, modifiers, recent injuries or sick contacts present at this time. AFib with RVR Autonomic imbalance vs CVA History of DVT DM type II CHF chronic CHF History of hyperlipidemia edema b/l in lower extremities leg swelling, ruling out DVT edema b/l syncope, ruling out CVA pending PT/OT pending SNF placement Plan discussed with: Patient My Orders My Orders Orders - RABIA DENIS DO Procedure Category Date Status Time * Tanker Service Attendant CONS 08/25/25 Transmitted Consult Dietary Evaluation Review Recommendations by RD: Dietary education by RD Comments: 1) Initiate MVI @ 1 tb qd 2) Decrease CHO amount from 60g to 45g [facility] cardiac diet 3) Refer to outpatient RD/[facility] for weight management 4) Follow-up with cardiology 5) Continue to monitor I&O, labs, and skin integrity Expected Outcomes/Goals: 1) appetite and labs to improve 2) wound to improve 3) gradual wt loss 4) f/u in 3-5 days RABIA DENIS DO Aug 25, 2025 13:10
--- NOTE | 2025-08-25 13:10 | DVHPN2 ---
Progress Note Date Seen: Aug 25, 2025 Medical Necessity Reason Pt with a Central, PICC or Fol: No Objective vital signs Vital Sign Date Time Temp Pulse Resp B/P (MAP) Pulse Ox O2 Delivery O2 Flow Rate FiO2 08/25/25 13:00 97.7 95 18 148/71 (96) 99 97.7 08/25/25 08:10 Nasal Cannula* 2 28 Total Intake and Output 08/24/25 08/24/25 08/25/25 15:00 23:00 07:00 Intake Total 520 ml 1180 ml 520 ml Output Total 1300 ml 600 ml Balance 520 ml -120 ml -80 ml medications Current Medications Medications Dose Ordered Sig/Elinor Route Start Time Stop Time Status Last Admin Dose Admin Apixaban 5 mg BID PO 08/21/25 22:00 08/25/25 09:15 5 MG Atorvastatin Calcium 40 mg HS PO 08/21/25 22:00 08/24/25 21:17 40 MG Losartan Potassium 50 mg DAILY PO 08/22/25 10:00 08/24/25 09:30 50 MG Nifedipine 60 mg BID PO 08/21/25 22:00 08/24/25 21:18 60 MG Ondansetron HCl 4 mg Q4HP PRN IV 08/21/25 15:00 Acetaminophen 650 mg Q6HP PRN PO 08/21/25 15:00 08/22/25 21:38 650 MG Nitroglycerin 0.4 mg Q5MINP PRN SL 08/21/25 15:00 UNV Morphine Sulfate 2 mg Q30M PRN IV 08/21/25 15:00 UNV Ceftriaxone Sodium 50 ml @ 100 mls/hr DAILY@09 IV 08/22/25 09:00 08/25/25 09:15 100 MLS/HR Diagnostic Test (Pha) 1 strip ACHS 08/21/25 17:00 08/25/25 11:45 1 STRIP Insulin Human Regular ACHS SC 08/21/25 17:00 08/25/25 11:50 6 UNITS Dextrose 50 ml UD PRN IV 08/21/25 15:00 Furosemide 40 mg DAILY IV 08/21/25 15:15 08/22/25 09:54 40 MG Nitroglycerin 0.4 mg Q5MINP PRN SL 08/21/25 15:15 Morphine Sulfate 2 mg Q30M PRN IV 08/21/25 15:15 Furosemide 80 mg BIDD IV 08/22/25 18:00 08/24/25 05:31 80 MG Amiodarone HCl 200 mg Q12HR PO 08/22/25 22:00 08/25/25 09:15 200 MG Examination: GENERAL:Normal, HEENT:Normal, NECK:Normal, LUNGS:Normal laboratory and microbiology Laboratory Tests 08/23/25 18:16 08/22/25 03:45 Test 08/23/25 18:16 Range/Units Serum Glucose 185 H 74-106 mg/dL Labs and/or images reviewed: Labs reviewed by me, Image(s) reviewed by me Problem List/Assessment/Plan Problem List/Assessment/Plan 74-year-old female brought in by ambulance with prior medical history of hypertension, diabetes, AFib, bilateral knee arthritis and a chief complaint of a fall. EMS for on picking the patient up from an independent out post home foremost. Patient reports on ambulating when she felt dizzy and had a near syncopal episode falling on her butt. Patient is currently complaining of right knee pain and lower back pain. The blood pressure on scene was 136/71. Denies any other symptoms at this time. Denies chills, fever, N/V/D, SOB, CP. No other associated symptoms, modifiers, recent injuries or sick contacts present at this time. AFib with RVR Autonomic imbalance vs CVA History of DVT DM type II CHF chronic CHF History of hyperlipidemia edema b/l in lower extremities leg swelling, ruling out DVT edema b/l syncope, ruling out CVA pending PT/OT pending SNF placement Plan discussed with: Patient My Orders My Orders Orders - RABIA DENIS DO Procedure Category Date Status Time * Power Generation Technician CONS 08/25/25 Transmitted Consult Dietary Evaluation Review Recommendations by RD: Dietary education by RD Comments: 1) Initiate MVI @ 1 tb qd 2) Decrease CHO amount from 60g to 45g [facility] cardiac diet 3) Refer to outpatient RD/[facility] for weight management 4) Follow-up with cardiology 5) Continue to monitor I&O, labs, and skin integrity Expected Outcomes/Goals: 1) appetite and labs to improve 2) wound to improve 3) gradual wt loss 4) f/u in 3-5 days RABIA DENIS DO Aug 25, 2025 13:10
[2025-08-26] VITALS (9 sets, daily range): BP systolic 115–156; BP diastolic 64–73; PULSE 81–98; RESP 17–92; TEMP 97.9–98.8; O2SAT 92–97
--- NOTE | 2025-08-26 23:28 | DVHPN2 ---
Progress Note Date Seen: Aug 26, 2025 Medical Necessity Reason Pt with a Central, PICC or Fol: No Subjective Patient reports: No new complaints Review of Systems: HEENT:Normal, CVS:Normal, RESPIRATORY:Normal Objective vital signs Vital Sign Date Time Temp Pulse Resp B/P (MAP) Pulse Ox O2 Delivery O2 Flow Rate FiO2 08/26/25 21:30 136/66 08/26/25 21:00 98.3 81 17 96 98.3 08/26/25 20:09 Nasal Cannula* 2 28 Total Intake and Output 08/25/25 08/25/25 08/26/25 15:00 23:00 07:00 Intake Total 240 ml 980 ml 720 ml Output Total 500 ml 850 ml Balance 240 ml 480 ml -130 ml medications Current Medications Medications Dose Ordered Sig/Elinor Route Start Time Stop Time Status Last Admin Dose Admin Apixaban 5 mg BID PO 08/21/25 22:00 08/26/25 21:29 5 MG Atorvastatin Calcium 40 mg HS PO 08/21/25 22:00 08/26/25 21:29 40 MG Losartan Potassium 50 mg DAILY PO 08/22/25 10:00 08/26/25 10:01 50 MG Nifedipine 60 mg BID PO 08/21/25 22:00 08/26/25 21:30 60 MG Ondansetron HCl 4 mg Q4HP PRN IV 08/21/25 15:00 Acetaminophen 650 mg Q6HP PRN PO 08/21/25 15:00 08/26/25 23:05 650 MG Nitroglycerin 0.4 mg Q5MINP PRN SL 08/21/25 15:00 UNV Morphine Sulfate 2 mg Q30M PRN IV 08/21/25 15:00 UNV Ceftriaxone Sodium 50 ml @ 100 mls/hr DAILY@09 IV 08/22/25 09:00 08/26/25 09:59 100 MLS/HR Diagnostic Test (Pha) 1 strip ACHS 08/21/25 17:00 08/26/25 21:27 1 STRIP Insulin Human Regular ACHS SC 08/21/25 17:00 08/26/25 21:27 4 UNITS Dextrose 50 ml UD PRN IV 08/21/25 15:00 Furosemide 40 mg DAILY IV 08/21/25 15:15 08/22/25 09:54 40 MG Nitroglycerin 0.4 mg Q5MINP PRN SL 08/21/25 15:15 Morphine Sulfate 2 mg Q30M PRN IV 08/21/25 15:15 Furosemide 80 mg BIDD IV 08/22/25 18:00 08/24/25 05:31 80 MG Amiodarone HCl 200 mg Q12HR PO 08/22/25 22:00 08/26/25 21:30 200 MG Examination: GENERAL:Normal, HEENT:Normal, NECK:Normal, LUNGS:Normal laboratory and microbiology Laboratory Tests 08/23/25 18:16 08/22/25 03:45 Test 08/23/25 18:16 Range/Units Serum Glucose 185 H 74-106 mg/dL Labs and/or images reviewed: Labs reviewed by me, Image(s) reviewed by me Problem List/Assessment/Plan Problem List/Assessment/Plan 74-year-old female brought in by ambulance with prior medical history of hypertension, diabetes, AFib, bilateral knee arthritis and a chief complaint of a fall. EMS for on picking the patient up from an independent out post home foremost. Patient reports on ambulating when she felt dizzy and had a near syncopal episode falling on her butt. Patient is currently complaining of right knee pain and lower back pain. The blood pressure on scene was 136/71. Denies any other symptoms at this time. Denies chills, fever, N/V/D, SOB, CP. No other associated symptoms, modifiers, recent injuries or sick contacts present at this time. AFib with RVR Autonomic imbalance vs CVA History of DVT DM type II CHF chronic CHF History of hyperlipidemia edema b/l in lower extremities leg swelling, ruling out DVT edema b/l syncope, ruling out CVA pending PT/OT pending SNF placement Plan discussed with: Patient My Orders My Orders Orders - RABIA DENIS DO Procedure Category Date Status Time Complete Blood Count LAB 08/27/25 Verified 04:00 Comprehensive LAB 08/27/25 Verified Metabolic Panel 04:00 Dietary Evaluation Review Recommendations by RD: Dietary education by RD Comments: 1) Initiate MVI @ 1 tb qd 2) Decrease [facility] amount from 60g to 45g [facility] 3) Refer to outpatient RD/[facility] for weight management 4) Follow-up with cardiology 5) Continue to monitor I&O, labs, and skin integrity Expected Outcomes/Goals: 1) appetite and labs to improve 2) wound to improve 3) gradual wt loss 4) f/u in 3-5 days RABIA DENIS DO Aug 26, 2025 23:28
[2025-08-27] VITALS (8 sets, daily range): BP systolic 109–143; BP diastolic 54–85; PULSE 73–84; RESP 17–18; TEMP 97.1–98.6; O2SAT 91–98
[2025-08-27 07:47] LABS: Alanine Aminotransferase 16 U/L (7-40); Albumin 4.0 g/dL (3.2-4.8); Alkaline Phosphatase 67 U/L (46-116); Anion Gap 10 (5-15); BUN/Creatinine Ratio 23.0 (10.0-20.0); Total Protein 6.6 g/dL (5.7-8.2)
[2025-08-27 07:48] LABS: Bilirubin, Total 0.6 mg/dL (0.2-1.0)
[2025-08-27 07:49] LABS: Blood Urea Nitrogen 26 mg/dL (9-23); Calcium 8.7 mg/dL (8.7-10.4); Carbon Dioxide 31 mmol/L (20-31); Chloride 91 mmol/L (98-107); Glucose 143 mg/dL (74-106); Potassium 3.5 mmol/L (3.5-5.1); Sodium 132 mmol/L (136-145)
[2025-08-27 07:52] LABS: Hematocrit 30.1 % (36.0-46.0); Hemoglobin 10.6 g/dL (12.2-16.2); Mean Corpuscular Hemoglobin 30.6 pg (28.0-32.0); Mean Corpuscular Volume 86.9 fL (80.0-100.0); Nucleated Red Blood Cells % 0.0 %
--- NOTE | 2025-08-27 15:47 | DVHPN2 ---
Progress Note Date Seen: Aug 27, 2025 Medical Necessity Reason Pt with a Central, PICC or Fol: No Objective vital signs Vital Sign Date Time Temp Pulse Resp B/P (MAP) Pulse Ox O2 Delivery O2 Flow Rate FiO2 08/27/25 12:51 97.1 76 18 125/85 (98) 98 97.1 08/27/25 08:00 Nasal Cannula* 2 28 Total Intake and Output 08/26/25 08/26/25 08/27/25 15:00 23:00 07:00 Intake Total 50 ml 950 ml 1800 ml Output Total 500 ml 1400 ml Balance 50 ml 450 ml 400 ml medications Current Medications Medications Dose Ordered Sig/Elinor Route Start Time Stop Time Status Last Admin Dose Admin Apixaban 5 mg BID PO 08/21/25 22:00 08/27/25 08:25 5 MG Atorvastatin Calcium 40 mg HS PO 08/21/25 22:00 08/26/25 21:29 40 MG Losartan Potassium 50 mg DAILY PO 08/22/25 10:00 08/27/25 08:27 50 MG Nifedipine 60 mg BID PO 08/21/25 22:00 08/27/25 08:26 60 MG Ondansetron HCl 4 mg Q4HP PRN IV 08/21/25 15:00 Acetaminophen 650 mg Q6HP PRN PO 08/21/25 15:00 08/26/25 23:05 650 MG Nitroglycerin 0.4 mg Q5MINP PRN SL 08/21/25 15:00 UNV Morphine Sulfate 2 mg Q30M PRN IV 08/21/25 15:00 UNV Ceftriaxone Sodium 50 ml @ 100 mls/hr DAILY@09 IV 08/22/25 09:00 08/27/25 08:25 100 MLS/HR Diagnostic Test (Pha) 1 strip ACHS 08/21/25 17:00 08/27/25 11:16 1 STRIP Insulin Human Regular ACHS SC 08/21/25 17:00 08/27/25 11:14 4 UNITS Dextrose 50 ml UD PRN IV 08/21/25 15:00 Furosemide 40 mg DAILY IV 08/21/25 15:15 08/22/25 09:54 40 MG Nitroglycerin 0.4 mg Q5MINP PRN SL 08/21/25 15:15 Morphine Sulfate 2 mg Q30M PRN IV 08/21/25 15:15 Furosemide 80 mg BIDD IV 08/22/25 18:00 08/24/25 05:31 80 MG Amiodarone HCl 200 mg Q12HR PO 08/22/25 22:00 08/27/25 08:25 200 MG laboratory and microbiology Laboratory Tests 08/27/25 06:12 Test 08/27/25 06:12 Range/Units Serum Glucose 143 H 74-106 mg/dL Labs and/or images reviewed: Labs reviewed by me, Image(s) reviewed by me Problem List/Assessment/Plan Problem List/Assessment/Plan 74-year-old female brought in by ambulance with prior medical history of hypertension, diabetes, AFib, bilateral knee arthritis and a chief complaint of a fall. EMS for on picking the patient up from an independent out post home foremost. Patient reports on ambulating when she felt dizzy and had a near syncopal episode falling on her butt. Patient is currently complaining of right knee pain and lower back pain. The blood pressure on scene was 136/71. Denies any other symptoms at this time. Denies chills, fever, N/V/D, SOB, CP. No other associated symptoms, modifiers, recent injuries or sick contacts present at this time. AFib with RVR Autonomic imbalance vs CVA History of DVT DM type II CHF chronic CHF History of hyperlipidemia edema b/l in lower extremities leg swelling, ruling out DVT edema b/l syncope, ruling out CVA pending PT/OT pending SNF placement Plan discussed with: Patient Dietary Evaluation Review Recommendations by RD: Dietary education by RD Comments: 1) Initiate MVI @ 1 tb qd 2) Decrease CHO amount from 60g to 45g [facility] cardiac diet 3) Refer to outpatient RD/[facility] for weight management 4) Follow-up with cardiology 5) Continue to monitor I&O, labs, and skin integrity Expected Outcomes/Goals: 1) appetite and labs to improve 2) wound to improve 3) gradual wt loss 4) f/u in 3-5 days RABIA DENIS DO Aug 27, 2025 15:47
[2025-08-28] VITALS (8 sets, daily range): BP systolic 120–141; BP diastolic 58–72; PULSE 75–94; RESP 14–20; TEMP 97.9–98.6; O2SAT 93–97
[2025-08-29 05:00] VITALS: BP 135/67; PULSE 81; RESP 20; TEMP 98; O2SAT 93
[2025-08-29 08:00] VITALS: PULSE 84; PULSE 87; RESP 14; O2SAT 95
[2025-08-29 09:00] VITALS: BP 131/69; PULSE 84; RESP 18; TEMP 98.3; O2SAT 93
[2025-08-29 13:00] VITALS: BP_SYST 111; BP_SYST 136; BP_DIAS 62; BP_DIAS 75; PULSE 73; RESP 18; TEMP 97.9; O2SAT 94
[2025-08-29] MEDS ORDERED: AMIO200T13 PO (15:06)
--- NOTE | 2025-08-29 15:11 | DVHPN2 ---
Progress Note Date Seen: Aug 28, 2025 Medical Necessity Reason Pt with a Central, PICC or Fol: No Objective vital signs Vital Sign Date Time Temp Pulse Resp B/P (MAP) Pulse Ox O2 Delivery O2 Flow Rate FiO2 08/29/25 13:00 97.9 73 18 136/75 (95) 94 97.9 08/29/25 08:00 Nasal Cannula* 3 32 Total Intake and Output 08/28/25 08/28/25 08/29/25 15:00 23:00 07:00 Intake Total 50 ml 1200 ml 650 ml Output Total 1000 ml 1550 ml Balance 50 ml 200 ml -900 ml medications Current Medications Medications Dose Ordered Sig/Elinor Route Start Time Stop Time Status Last Admin Dose Admin Apixaban 5 mg BID PO 08/21/25 22:00 08/29/25 10:19 5 MG Atorvastatin Calcium 40 mg HS PO 08/21/25 22:00 08/28/25 22:13 40 MG Losartan Potassium 50 mg DAILY PO 08/22/25 10:00 08/29/25 10:19 50 MG Nifedipine 60 mg BID PO 08/21/25 22:00 08/29/25 10:19 60 MG Ondansetron HCl 4 mg Q4HP PRN IV 08/21/25 15:00 Acetaminophen 650 mg Q6HP PRN PO 08/21/25 15:00 08/26/25 23:05 650 MG Nitroglycerin 0.4 mg Q5MINP PRN SL 08/21/25 15:00 UNV Morphine Sulfate 2 mg Q30M PRN IV 08/21/25 15:00 UNV Ceftriaxone Sodium 50 ml @ 100 mls/hr DAILY@09 IV 08/22/25 09:00 08/29/25 08:25 100 MLS/HR Diagnostic Test (Pha) 1 strip ACHS 08/21/25 17:00 08/29/25 11:30 1 STRIP Insulin Human Regular ACHS SC 08/21/25 17:00 08/29/25 11:30 3 UNITS Dextrose 50 ml UD PRN IV 08/21/25 15:00 Furosemide 40 mg DAILY IV 08/21/25 15:15 08/29/25 10:19 40 MG Nitroglycerin 0.4 mg Q5MINP PRN SL 08/21/25 15:15 Morphine Sulfate 2 mg Q30M PRN IV 08/21/25 15:15 Furosemide 80 mg BIDD IV 08/22/25 18:00 08/24/25 05:31 80 MG Amiodarone HCl 200 mg Q12HR PO 08/22/25 22:00 08/29/25 10:19 200 MG Examination: GENERAL:Normal, HEENT:Normal laboratory and microbiology Laboratory Tests 08/27/25 06:12 Test 08/27/25 06:12 Range/Units Serum Glucose 143 H 74-106 mg/dL Labs and/or images reviewed: Labs reviewed by me, Image(s) reviewed by me Problem List/Assessment/Plan Problem List/Assessment/Plan 74-year-old female brought in by ambulance with prior medical history of hypertension, diabetes, AFib, bilateral knee arthritis and a chief complaint of a fall. EMS for on picking the patient up from an independent out post home [facility]. Patient reports on ambulating when she felt dizzy and had a near syncopal episode falling on her butt. Patient is currently complaining of right knee pain and lower back pain. The blood pressure on scene was 136/71. Denies any other symptoms at this time. Denies chills, fever, N/V/D, SOB, CP. No other associated symptoms, modifiers, recent injuries or sick contacts present at this time. AFib with RVR, uncontrolled, present on admission Autonomic imbalance vs CVA History of DVT DM type II CHF acute on chronic acute hypoxic respiratory failure chronic CHF History of hyperlipidemia edema b/l in lower extremities leg swelling, ruling out DVT edema b/l syncope, ruling out CVA morbid obesity difficulty ambulating pt's HR is more controlled her acute on chronic CHF is improved in the ER pt states she does not have a place to go back to as she cannot take of self and requested to be place in a facility please see PT evaluation for her mobility Plan discussed with: Patient My Orders My Orders Orders - RABIA DENIS DO Procedure Category Date Status Time Discharge DISCHARGE 08/29/25 Verified 15:07 Dietary Evaluation Review Recommendations by RD: Dietary education by RD Comments: 1) Initiate MVI @ 1 tb qd 2) Decrease CHO amount from 60g to 45g CCHO cardiac diet 3) Refer to outpatient RD/[facility] for weight management 4) Follow-up with cardiology 5) Continue to monitor I&O, labs, and skin integrity Expected Outcomes/Goals: 1) appetite and labs to improve 2) wound to improve 3) gradual wt loss 4) f/u in 3-5 days RABIA DENIS DO Aug 29, 2025 15:11
--- NOTE | 2025-08-29 15:12 | DVHDS2 ---
Discharge Summary Date of Admission Aug 21, 2025 at 15:07 Date of Discharge: Aug 29, 2025 Labs/Diagnostic Data: Laboratory Results Test 08/29/25 05:55 08/27/25 06:12 08/22/25 09:30 08/21/25 15:25 POC Glucose 168 mg/dl (70-106) White Blood Count 6.5 10^3/uL (4.4-10.8) Red Blood Count 3.46 10^6/uL (4.0-5.20) Hemoglobin 10.6 g/dL (12.2-16.2) Hematocrit 30.1 % (36.0-46.0) Mean Corpuscular Volume 86.9 fL (80.0-100.0) Mean Corpuscular Hemoglobin 30.6 pg (28.0-32.0) Mean Corpuscular Hemoglobin Concent 35.2 g/dL (32.0-36.0) Red Cell Distribution Width 13.1 % (11.8-14.3) Platelet Count 355 10^3/uL (140-450) Mean Platelet Volume 7.2 fL (6.9-10.8) Neutrophils (%) (Auto) 71.9 % (37.0-80.0) Lymphocytes (%) (Auto) 16.0 % (10.0-50.0) Monocytes (%) (Auto) 10.5 % (0.0-12.0) Eosinophils (%) (Auto) 1.0 % (0.0-7.0) Basophils (%) (Auto) 0.6 % (0.0-2.0) Neutrophils # (Auto) 4.7 10 ^3/uL (1.6-8.6) Lymphocytes # (Auto) 1.0 10 ^3/uL (0.4-5.4) Monocytes # (Auto) 0.7 10 ^3/uL (0-1.3) Eosinophils # (Auto) 0.1 10 ^3/uL (0-0.8) Basophils # (Auto) 0 10 ^3/uL (0-0.2) Nucleated Red Blood Cells 0.0 % Sodium Level 132 mmol/L (136-145) Potassium Level 3.5 mmol/L (3.5-5.1) Chloride Level 91 mmol/L (98-107) Carbon Dioxide Level 31 mmol/L (20-31) Anion Gap 10 (5-15) Blood Urea Nitrogen 26 mg/dL (9-23) Creatinine 1.13 mg/dL (0.550-1.02) Glomerular Filtration Rate Calc 51 mL/min (>90) BUN/Creatinine Ratio 23.0 (10.0-20.0) Serum Glucose 143 mg/dL (74-106) Calcium Level 8.7 mg/dL (8.7-10.4) Total Bilirubin 0.6 mg/dL (0.2-1.0) Aspartate Amino Transferase (AST) 23 U/L (13-40) Alanine Aminotransferase (ALT) 16 U/L (7-40) Alkaline Phosphatase 67 U/L (46-116) Total Protein 6.6 g/dL (5.7-8.2) Albumin 4.0 g/dL (3.2-4.8) Influenza Type A Antigen Negative (Negative) Influenza Type B Antigen Negative (Negative) SARS-CoV-2 Antigen (Rapid) Negative (NEGATIVE) Urine Color Colorless (Yellow) Urine Clarity Clear (Clear) Urine pH 7.0 (5.0-9.0) Urine Specific [place] 1.005 (1.001-1.035) Urine Protein Negative (Negative) Urine Ketones Negative (Negative) Urine Blood Trace /uL (Negative) Urine Nitrite Negative (Negative) Urine Bilirubin Negative (Negative) Urine Urobilinogen Normal mg/dL (Negative) Urine Leukocyte Esterase Negative /uL (Negative) Urine RBC 1 /hpf (0 - 4) Urine Microscopic WBC 2 /HPF (0-5) Urine Squamous Epithelial Cells Few /hpf (<5) Urine Bacteria Few /hpf (None Seen) Urine Glucose Normal mg/dL (Normal) Test 08/21/25 10:40 08/21/25 09:39 Troponin I High Sensitivity 4 ng/L (</=34) Hemoglobin A1c 6.3 % A1C (<5.7) Other Laboratory Tests 08/27/25 06:12 Brief Hx & Hospital Course: 74-year-old female brought in by ambulance with prior medical history of hypertension, diabetes, AFib, bilateral knee arthritis and a chief complaint of a fall. EMS for on picking the patient up from an independent out post home [facility]. Patient reports on ambulating when she felt dizzy and had a near syncopal episode falling on her butt. Patient is currently complaining of right knee pain and lower back pain. The blood pressure on scene was 136/71. Denies any other symptoms at this time. Denies chills, fever, N/V/D, SOB, CP. No other associated symptoms, modifiers, recent injuries or sick contacts present at this time. AFib with RVR, uncontrolled, present on admission Autonomic imbalance vs CVA History of DVT DM type II CHF acute on chronic acute hypoxic respiratory failure chronic CHF History of hyperlipidemia edema b/l in lower extremities leg swelling, ruling out DVT edema b/l syncope, ruling out CVA morbid obesity difficulty ambulating 50-6-% stempsos pf right carotid pt's HR is more controlled her acute on chronic CHF is improved in the ER pt states she does not have a place to go back to as she cannot take of self and requested to be place in a facility please see PT evaluation for her mobility discharged to assisted living Condition at Discharge: Fair Final Diagnosis/Problems List see above Discharge Disposition: Assisted Living Facility Discharge Instruct/Medications Diet: Cardiac 2g Na,low cholest Activity: No Restrictions, As Tolerated Scheduled Amiodarone HCl (Amiodarone HCl), 200 MG PO Q12HR Apixaban Base (Eliquis), 1 TAB PO BID, (Reported) Atorvastatin Calcium (Atorvastatin Calcium), 1 TAB PO DAILY, (Reported) Celecoxib (Celecoxib), 1 CAP PO BID, (Reported) Furosemide (Furosemide), 1 TAB PO DAILY, (Reported) Glipizide (Glipizide), 1 TAB PO DAILY, (Reported) Irbesartan (Irbesartan), 1 TAB PO DAILY, (Reported) Metformin Hydrochloride (Metformin Hcl), 1 TAB PO BID, (Reported) Metolazone (Metolazone), 1 TAB PO DAILY, (Reported) Nifedipine (Nifedipine Er), 1 TAB PO BID, (Reported) Potassium Chloride (Potassium Chloride ER), 1 TAB PO BID, (Reported) Discharge Statement: "Patient was advised to return to the ER or call 911 if any headaches, dizziness, shortness of breath, chest pain, abdominal pain, bleeding, fevers, or worsening of medical condition. Patient was counseled about treatment plan, medications, possible side effects, patientverbalized understanding. All questions were answered to the best of my ability. This discharge took greater then 30 minutes in planning, reviewing documentation, counseling the patient, and discussing with other team members." ASSESSMENT ASSESSMENT Assessment RABIA DENIS DO Aug 29, 2025 15:12
== END 2025-08-29 16:40 | disposition home or self-care (01) | DRG 73 ==
LOC: ER 08:58 → EDBD 08:58 → OVERFLOW 15:07 → TELE-CENTR 08-22 11:08
PROVIDERS: ADMIT Internal Medicine; ATTEND Internal Medicine
DX: G90.89 Other disorders of autonomic nervous system (principal); J96.01 Acute respiratory failure with hypoxia; I50.9 Heart failure, unspecified; E11.65 Type 2 diabetes mellitus with hyperglycemia; D72.829 Elevated white blood cell count, unspecified; E66.01 Morbid (severe) obesity due to excess calories; E78.5 Hyperlipidemia, unspecified; I11.0 Hypertensive heart disease with heart failure; Z68.41 Body mass index [BMI] 40.0-44.9, adult; I48.0 Paroxysmal atrial fibrillation; M17.0 Bilateral primary osteoarthritis of knee; Z79.84 Long term (current) use of oral hypoglycemic drugs; Z79.899 Other long term (current) drug therapy; Z79.01 Long term (current) use of anticoagulants; Z86.718 Personal history of other venous thrombosis and embolism
CPT/HCPCS: 36415; 70450; 71045; 72170; 80048; 80053; 81001; 82962; 83036; 84484; 85025; 87426; 87804; 93005; 93306; 93886; 93970; 96365; 96367; 96375; 97110; 97116; 97163; 97530; 99291; 99292; G0378; J1815; J2543